=== PATIENT | female | born 1990 | race Hispanic/Latino ===

== ENCOUNTER 2020-06-30 20:28 | Emergency (ER) | payer BC ==
[2020-07-01 17:57] LABS: SARS-CoV-2 PCR by NAA Not Detected (NotDetected)
== END 2020-06-30 22:50 | disposition home or self-care (01) ==
LOC: CSHERS 20:28
DX: R51.9 Headache, unspecified (principal); M79.10 Myalgia, unspecified site; Z20.822 Contact with and (suspected) exposure to COVID-19
CPT/HCPCS: 87635; 93005; U0003; U0005

== ENCOUNTER 2022-02-08 07:44 | Outpatient (CLI) | payer BC ==
[2022-02-08] MEDS ORDERED: Iopamidol 300 61% 100 ML VIAL FS ONE (09:10)
== END 2022-02-08 07:45 | disposition home or self-care (01) ==
LOC: CSHCT 07:44
PROVIDERS: ATTEND Family Medicine
DX: E22.1 Hyperprolactinemia (principal); E28.2 Polycystic ovarian syndrome; R79.89 Other specified abnormal findings of blood chemistry
CPT/HCPCS: 74170